=== PATIENT | male | born 2000 | race African-American/Black ===

== ENCOUNTER 2023-02-07 08:14 | Emergency (ER) | payer SELFPAY ==
[2023-02-07] MEDS ORDERED: Sodium Chloride 0.9% 10 ML Syringe FLUSH PRN (08:39)
[2023-02-07] MEDS ORDERED: Ketorolac 30 MG/ML SDV IVPUSH ONE (08:39)
[2023-02-07] MEDS ORDERED: Sodium Chloride 0.9% 1,000 ML IV ONE (08:44)
== END 2023-02-07 09:38 | disposition home or self-care (01) ==
LOC: DL.ED 08:14
DX: U07.1 COVID-19 (principal)
CPT/HCPCS: 87804; 96374; 99284-25; J1885; J3490; J7030; U0002